=== PATIENT | female | born 1950 | race Caucasian/White ===

== ENCOUNTER → 2016-10-23 | Outpatient (CLI) | payer MEDICARE, OTHER ==
[~2016-10-23] MED LIST: 00186-0370-20 IH; ACIDOPHILUS; ACIDOPHILUS PRO1 CAP PO; ALEVE 220MG220 MG PO; ALLERGY SHOT IM; ANTIVERT 25MG25 MG PO; B COMPLEX & B121 TAB PO; BENADRYL E2.5 MG/1 M PO; CHILDREN'S BE12.5 MG PO; L-LYSINE500 MG PO; LEVOXYL0.025 MG PO; LEVOXYL0.05 MG PO; LEVSIN 0.10.125 MG/T; LEVSIN0.125 M1 PO; MEVACOR10 MG; MEVACOR10 MG PO; NEXIUM 40MG40 MG PO; NORCO 325 MG-51 TAB PO; OCEAN NASAL SPR45 ML NS; PERCOCET 325 MG1 TA2 PO; PROAIR HFA0.09 MG/AC IH; PROLIA60 MG/ML SC; ROBITUSSIN100 MG/5 M PO; SINGULAIR 110 MG/TAB PO; SYNTHROID 0.0.025 MG PO; TENORMIN 2525 MG/TAB PO; TYLENOL 325MG325 MG PO; TYLENOL ELIX32 MG/M2 PO; VALIUM 2MG T2 MG/TAB PO; VALIUM 5MG T5 MG/TAB; VALIUM 5MG T5 MG/TAB PO; VITAMIN B11000 MCG/M IM; VITAMIN C500 MG PO; VITAMIN D 400400 IU PO; VITAMIN D32000 IU PO; ZYRTEC SYRUP1 MG/ML PO; [UNRECOGNIZED DRUG - OTHER] PO
== END ==
LOC: COL.PUL 13:33
DX: L92.8 Other granulomatous disorders of the skin and subcutaneous tissue (principal)

== ENCOUNTER → 2016-11-21 | Outpatient (CLI) | payer MEDICARE, OTHER | LOC: COL.VAS 07:58 | DX: I35.1 Nonrheumatic aortic (valve) insufficiency (principal); R07.89 Other chest pain; R06.09 Other forms of dyspnea ==

== ENCOUNTER 2016-11-26 08:56 | Day surgery (SDC) | payer MEDICARE, OTHER ==
[~2016-11-26] VITALS: Ht 165.1 cm; Wt 50.5 kg
[~2016-11-26 08:56] MED LIST changes: -ALLERGY SHOT IM; -BENADRYL E2.5 MG/1 M PO; -LEVOXYL0.05 MG PO; -ROBITUSSIN100 MG/5 M PO; -TYLENOL ELIX32 MG/M2 PO
[2016-11-26 09:47] VITALS: BP 135/67; PULSE 84; TEMP 98.1
[2016-11-26] MEDS ORDERED: LEVOXYL0.05 MG PO (10:06)
[2016-11-26] MEDS ORDERED: TYLENOL ELIX32 MG/M2 PO (10:08)
[2016-11-26] MEDS ORDERED: BENADRYL E2.5 MG/1 M PO (10:08)
[2016-11-26] MEDS ORDERED: ROBITUSSIN100 MG/5 M PO (10:09)
[2016-11-26] MEDS ORDERED: ALLERGY SHOT IM (10:10)
[2016-11-26 11:04] VITALS: BP 134/74; PULSE 86; TEMP 97.9
[2016-11-26 11:19] VITALS: BP 133/69; PULSE 78
[2016-11-26 11:34] VITALS: BP 132/68; PULSE 85
[2016-11-26 11:49] VITALS: BP 124/68; PULSE 92
[2016-11-26 12:13] VITALS: BP 116/80; PULSE 82
== END 2016-11-26 12:05 | disposition home or self-care (01) ==
LOC: SDCO 08:56
DX: R05 Cough (principal); R06.02 Shortness of breath; R91.8 Other nonspecific abnormal finding of lung field; J44.9 Chronic obstructive pulmonary disease, unspecified
CPT/HCPCS: J2704; J7120

== ENCOUNTER → 2016-12-26 | Outpatient (CLI) | payer MEDICARE, OTHER ==
[~2016-12-26] MED LIST changes: +ALLERGY SHOT IM; +BENADRYL E2.5 MG/1 M PO; +LEVOXYL0.05 MG PO; +ROBITUSSIN100 MG/5 M PO; +TYLENOL ELIX32 MG/M2 PO
== END ==
LOC: COL.PUL 10:49
DX: R06.02 Shortness of breath (principal)
CPT/HCPCS: J7674

== ENCOUNTER 2017-03-10 09:32 | Emergency (ER) | payer MEDICARE, OTHER ==
[~2017-03-10] VITALS: Ht 165.1 cm; Wt 50.9 kg
[2017-03-10 09:36] VITALS: TEMP 99.2
[2017-03-10 10:07] VITALS: BP 83/47
[2017-03-10 10:53] LABS: BASO % 0.4 % (0.0-2.0); EOS # 0.1 (0.0-0.7); EOS % 0.7 % (0-4.0); GRAN # 4.7 (1.4-6.5); GRAN % 64.1 % (42.2-75.2); HEMATOCRIT 39.8 % (37.0-47.0); HEMOGLOBIN 12.8 g/dl (12.5-16.0); LYMPH % 27.1 % (20.0-51.0); MEAN CELL VOLUME 93 fl (80.0-100.0); MEAN CORPUSCULAR HEMOGLOBIN 30 pg (27.0-31.0); MEAN CORPUSCULAR HGB CONC 32 g/dl (33.0-37.0); MEAN PLATELET VOLUME 10.2 fl (7.4-10.4); MONO # 0.5 (0.1-0.6); MONO % 6.7 % (1.7-9.3); PLATELET COUNT 228 K/mm3 (130-400); RED BLOOD COUNT 4.26 M/mm3 (4.10-5.30); REDCELL DISTRIBUTION WIDTH-CV 14.9 % (11.5-14.5); WHITE BLOOD COUNT 7.3 K/mm3 (4.8-10.8)
[2017-03-10 11:13] LABS: ADJUSTED CALCIUM 8.8 mg/dL (8.4-10.2); ALANINE AMINOTRANSFERASE 18 U/L (9-52); ALBUMIN 4.2 gm/dL (3.5-5.0); ALKALINE PHOSPHATASE 51 U/L (50-136); ANION GAP 10 mmol/L (7-16); BILIRUBIN,TOTAL 0.8 mg/dL (0.0-1.0); BLOOD UREA NITROGEN 9 mg/dL (7-17); CARBON DIOXIDE 26 mmol/L (22-30); CHLORIDE 103 mmol/L (98-107); CREATININE, serum 0.71 mg/dL (0.52-1.25); GLUCOSE 80 mg/dL (74-106); POTASSIUM 3.6 mmol/L (3.4-5.0); SODIUM 139 mmol/L (137-145)
[2017-03-10 11:16] LABS: INFLUENZA B NEGATIVE
[2017-03-10 11:42] LABS: C-REACTIVE PROTEIN < 0.5 mg/dL (0.0-0.9)
[2017-03-10 12:07] VITALS: PULSE 79
== END 2017-03-10 12:08 | disposition home or self-care (01) ==
LOC: COL.ER 09:32
PROVIDERS: Family Medicine
DX: M54.2 Cervicalgia (principal); J06.9 Acute upper respiratory infection, unspecified; J45.909 Unspecified asthma, uncomplicated; R50.9 Fever, unspecified; R51 Headache
CPT/HCPCS: J7030

== ENCOUNTER → 2017-05-29 | Outpatient (CLI) | payer MEDICARE, OTHER | LOC: MC.RAD 05-27 11:00 | DX: Z12.31 Encounter for screening mammogram for malignant neoplasm of breast (principal) ==

== ENCOUNTER → 2018-07-11 | Outpatient (CLI) | payer MEDICARE, OTHER | LOC: MC.RAD 12:51 | DX: Z12.31 Encounter for screening mammogram for malignant neoplasm of breast (principal) ==

== ENCOUNTER 2019-03-19 14:14 | Outpatient (CLI) | payer MEDICARE, MEDICAID ==
[~2019-03-19 14:14] MED LIST changes: -PROLIA60 MG/ML SC; +PROLIA60 MG/ML SQ
[2019-03-19] MEDS ORDERED: ROBAXIN 75750 MG/TAB PO (14:36)
[2019-03-19 15:08] VITALS: BP 146/97; PULSE 83; TEMP 98.3
== END 2019-03-19 15:56 | disposition home or self-care (01) ==
LOC: EUO 14:14
DX: M81.0 Age-related osteoporosis without current pathological fracture (principal)
CPT/HCPCS: J3489

== ENCOUNTER → 2019-07-27 | Outpatient (CLI) | payer MEDICARE, MEDICAID ==
[~2019-07-27] MED LIST changes: +ROBAXIN 75750 MG/TAB PO
== END ==
LOC: COL.RAD 09:41
DX: R10.11 Right upper quadrant pain (principal)
CPT/HCPCS: A9537

== ENCOUNTER → 2019-08-12 | Outpatient (CLI) | payer MEDICARE, MEDICAID | LOC: COL.RAD 08:45 | DX: M16.11 Unilateral primary osteoarthritis, right hip (principal) | CPT/HCPCS: J3301; Q9967 ==

== ENCOUNTER → 2019-08-21 | Outpatient (CLI) | payer MEDICARE, MEDICAID | LOC: MC.RAD 11:39 | DX: Z12.31 Encounter for screening mammogram for malignant neoplasm of breast (principal) ==

== ENCOUNTER 2019-09-16 12:22 | Inpatient (IN) | payer MEDICARE, MEDICAID ==
[~2019-09-16] VITALS: Ht 165.1 cm; Wt 50.6 kg
[2019-11-17] VITALS (14 sets, daily range): BP systolic 83–142; BP diastolic 40–98; PULSE 70–104; TEMP 97.7–99.8
--- NOTE | 2019-11-17 05:15 | NUR ---
PATIENT ARRIVES PER W/C FOR SURGERY THIS AM. IS ALERT AND ORIENTED X4. IV STARTED TO LEFT FOREARM WITHOUT PROBLEM. FAMILY AT BEDSIDE.
[2019-11-17] MEDS ORDERED: VTAMINC250TA PO (05:40)
[2019-11-17] MEDS ORDERED: TOPROL XL 25MG25 MG PO (05:48)
[2019-11-17] MEDS ORDERED: DEXILANT60 MG PO (05:49)
[2019-11-17] MEDS ORDERED: PREDNISONE10 MG PO (05:50)
[2019-11-17] MEDS ORDERED: STIOLTO RESPIMAT4 GM IH (05:52)
[2019-11-17] MEDS ORDERED: ZYRTEC SYRUP1 MG/ML PO (05:52)
[2019-11-17] MEDS ORDERED: MYRBETR50MG PO (05:53)
[2019-11-17] MEDS ORDERED: LEXAPRO 5MG5 MG PO (05:54)
--- NOTE | 2019-11-17 06:30 | NUR ---
TAKEN VIA BED TO OR.
[2019-11-17] MEDS ORDERED: ATARAX 25MG25 MG/TAB PO (07:16)
[2019-11-17] MEDS ORDERED: ATARAX 10MG10 MG/TAB PO (07:17)
[2019-11-17] MEDS ORDERED: TESSALON P100 MG/CAP PO (07:18)
[2019-11-17] MEDS ORDERED: ALEVE 220MG220 MG PO (07:20)
[2019-11-17] MEDS ORDERED: FERROUS SU325 MG/TAB PO (07:22)
[2019-11-17] MEDS ORDERED: FOLIC ACID 40400 MCG PO (07:23)
[2019-11-17] MEDS ORDERED: POTASSIUM PO (07:25)
--- NOTE | 2019-11-17 09:25 | NUR ---
returned to room from PACU per bed, awake and alert, IV infusing and placed on pump at 125ml/hr, O2 on at 2L/NC and O2 sat 100%, has minimal sensation to feet and is beginning to wiggle toes, aquacel dressing to right hip CD&I, SCDS and RUBI hose on bilaterally, is c/o some pain to right hip, will monitor
--- NOTE | 2019-11-17 10:00 | NUR ---
states pain is continuing to increase, medicated with roxicodone 10mg, after took meds with sip of water c/o nausea and felt like she would have emesis, did not and nausea passed
--- NOTE | 2019-11-17 10:25 | NUR ---
is now crying and moving about in bed with shivering c/o increased pain, medicated with diluadid 0.25mg slow IV, family now in to visit
--- NOTE | 2019-11-17 10:45 | NUR ---
states pain is now getting better after having dilaudid, family at bedside assisting her with taking ice chips and she tolerates the ice chips without nausea
--- NOTE | 2019-11-17 11:45 | NUR ---
had mod amount clear liquid emesis that appeared to only be water, states was also incontinent when this occured
--- NOTE | 2019-11-17 12:00 | NUR ---
assisted up to bedside commode and voided, continues to have some nausea with clearliquid emesis, medicated with zofran 4mg po, moves with slow steady gait, medicated with scheduled toradol 15mg slow IV, c/o being a little dizzy when up and BP 91/48, P 76, c/o indigestion and refuses lunch at this time,
--- NOTE | 2019-11-17 12:53 | NUR ---
in bed and now appears to be sleeping, eyes closed, resp quiet and easy
--- NOTE | 2019-11-17 14:00 | NUR ---
BP 89/49 lying and P80, awake and talking with family and they and she both states it has been this low before
--- NOTE | 2019-11-17 14:05 | NUR ---
[place] [place] notified of BP, IV fluids increased to 150ml/hr
--- NOTE | 2019-11-17 14:42 | NUR ---
POOJA met with the patient and her two sons': Magdiel Fonseca (ph#[phone]) and Bertrand Fonseca (ph#[phone]) to discuss discharge plan. The patient lives alone in [place]. Magdiel states that he also lives in [place]. The patient reports independence with ADLs and has a cane and walker. The patient's PCP is Dr. Galdino Anderson and she receives her medications at [facility]. She reports no difficulties obtaining her meds. The patient's DPOA-HC is in EMR. Her DPOA-HC is her friend, Radha Kearney (ph#[phone]). The patient reports that due to living alone, she is interested in [facility] upon discharge. POOJA presented an explained the Patient Choice Form and provided her with Medicare.gov's list of SNFs. The patient chose 1) [facility] 2) [facility]. Patient Choice Form signed by the patient and she was provided a copy. POOJA contacted and faxed a referral to Renee at [facility]. POOJA consulted IPR Director, Johanny. POOJA awaiting their screens.
--- NOTE | 2019-11-17 15:27 | NUR ---
full assessment completed, see interventions for further info
--- NOTE | 2019-11-17 17:15 | NUR ---
sitting up in bed and eating small amount of supper
--- NOTE | 2019-11-17 18:00 | NUR ---
assisted up and ambulated into bathroom, moves with slow steady gait, after in bathroom c/o feeling nauseated and like she might "pass out", had her put her head down and she had a small amount undigested emesis, then felt better and dizziness passed, voided large amount, ambulated back to bed without further incident
--- NOTE | 2019-11-17 18:50 | NUR ---
bedside shift report given to MORIS Gong
[2019-11-18 03:55] VITALS: BP 106/55; PULSE 98; TEMP 98.4
--- NOTE | 2019-11-18 05:36 | NUR ---
Patient continues to be hypotensive. IV fluids continue. Patient states she has a headache and requests her Singulair, Benadryl, and Zyrtec for head congestion. This was given and effective as patient is sleeping. States she has not slept as of 0300. Scheduled Toradol given for pain relief. Voiding clear, yellow urine. Ambulates with 1 assist from staff with gait belt and walker. Aquacel clean, dry, and intact. Will continue to monitor.
--- NOTE | 2019-11-18 06:45 | NUR ---
Shift assessment; Patient states nausea, dizziness, and head congestion. Unable to eat breakfast due to lactose and gluten intolerance. Patient stated she chokes easily and has trouble swallowing pills. Patient complained of headache numeric pain scale 10/10, skin was cool and moist to the touch, with 99.0 temp.
[2019-11-18 07:00] VITALS: BP 122/58; PULSE 73; TEMP 99
[2019-11-18 07:11] LABS: HEMATOCRIT 27.3 % (37.0-47.0); HEMOGLOBIN 8.8 g/dl (12.5-16.0)
--- NOTE | 2019-11-18 07:50 | NUR ---
PRN Roxicodone PO 10 MG administered in anticipation of therapy.(OT)
[2019-11-18 09:30] VITALS: BP 129/61; PULSE 91
--- NOTE | 2019-11-18 11:56 | NUR ---
Initial visit; Patient thanked Crime Scene Photographer for stoppping and offering God's blessings and prayer. Crime Scene Photographer will follow up.
--- NOTE | 2019-11-18 13:40 | NUR ---
POOJA faxed updates to Renee at [facility]. POOJA awaiting their screen.
[2019-11-18 16:00] VITALS: BP 116/62; PULSE 88; TEMP 98.6
[2019-11-18 20:55] VITALS: BP 98/49; PULSE 87; TEMP 99.5
[2019-11-18 23:59] VITALS: BP 94/59; PULSE 94; TEMP 98.5
[2019-11-19 04:11] VITALS: BP 106/56; PULSE 99; TEMP 99.9
--- NOTE | 2019-11-19 05:39 | NUR ---
Patient rested well throughout the night. Roxycodone 10mg PRN given for pain relief. Noted to be effective. Patient states she feels much better than yesterday. Denies dizziness when she ambulates. Utilizes walker and gait belt. Ambulates with SBA. Dressing CDI. Eats applesauce with medication to deter from an upset stomach. Will continue to monitor.
[2019-11-19 06:03] LABS: HEMOGLOBIN 9.2 g/dl (12.5-16.0)
[2019-11-19 06:04] LABS: HEMATOCRIT 28.1 % (37.0-47.0)
[2019-11-19 08:00] VITALS: BP 105/57; PULSE 100; TEMP 99.4
--- NOTE | 2019-11-19 08:00 | NUR ---
PATIENT IS A&O. VSS. DENIES PAIN AT REST. PATIENT DOES NOT WANT TO GET UP INTO BEDSIDE CHAIR FOR BREAKFAST. RTH DRESSING IS CD&I WITH AQUACEL. TEDS TO BLE. POSITIVE PEDAL PULSES TO BLE. STUDENT NURSE WORKING WITH PATIENT TODAY, SEE CHARTING. HEAD TO TOE ASSESSMENT COMPLETE. BREAKFAST TRAY AT BEDSIDE. STUDENT GIVING AM MEDS. NO OTHER NEEDS. CALL LIGHT IN REACH.
--- NOTE | 2019-11-19 12:35 | NUR ---
PATIENT EATING LUNCH AND C/O ESOPHAGEAL SPAMS/REFLUX. GAVE PRN TUMS.
[2019-11-19 12:37] VITALS: BP 98/61; PULSE 98; TEMP 99
--- NOTE | 2019-11-19 13:41 | NUR ---
Resting in bed, worked with PT
--- NOTE | 2019-11-19 14:49 | NUR ---
Renee, at [facility], reports that they are able to accept the patient tomorrow and that the accepting physician is Dr. Oneida London. The [id number] number is [phone]. The RN report number is [phone]. POOJA met with the patient to inform. The patient is wanting to pursue with [facility] and she states that her son can provide her with transportation there. The patient is to tentatively discharge tomorrow, 11/20. POOJA presented and explained the IM form to the patient. The patient verbalized understanding, signed, and she was provided a copy. SW to continue to follow.
--- NOTE | 2019-11-19 15:15 | NUR ---
REPORTED OFF TO MORIS OLVERA.
[2019-11-19 17:25] VITALS: BP 124/69; PULSE 97; TEMP 99.8
--- NOTE | 2019-11-19 19:01 | NUR ---
Patient has done well this afternoon. Denies pain at this time. Reported off to cook night.
[2019-11-19 19:54] VITALS: BP 111/63; PULSE 83; TEMP 98.9
[2019-11-20 04:06] VITALS: BP 114/63; PULSE 93; TEMP 98.7
--- NOTE | 2019-11-20 04:46 | NUR ---
Patient has rested well throughout the night. Requests PRN Benadryl for congestion and this was given with some relief. This morning patient stated she had a little bit of nausea and requested PRN Zofran. This was administered. Patient now resting with eyes closed. SBA for transfers to the bathroom and ambulation with walker. Steady gait noted. PRN pain medication given and relief noted. Aquacel to right hip CDI. Denies any further needs. Will continue to monitor.
[2019-11-20 07:37] VITALS: BP 112/68; PULSE 101; TEMP 98.7
[2019-11-20 07:49] LABS: HEMATOCRIT 28.3 % (37.0-47.0); HEMOGLOBIN 9.1 g/dl (12.5-16.0)
[2019-11-20 09:00] VITALS: BP 112/68; PULSE 101; TEMP 98.7
--- NOTE | 2019-11-20 11:20 | NUR ---
The [id number] was done. The patient is to discharge today, 11/20, to [facility]. Transportation to be by private vehicle, via the patient's son. No additional needs at this time.
--- NOTE | 2019-11-20 11:25 | NUR ---
PATIENT DISCHARGING TO [facility]. STUDENT NURSE LORI'Rell IV, ASSISTED PATIENT TO GET DRESSED AND PACK BELONGINGS. GAVE INFO PACKET TO FAMILY. CALLED REPORT TO NURSE AT FACILITY. PATIENT GIVEN BACK HER HOME MEDICATIONS SHE BROUGHT IN, INCLUDING BOTH OF HER INHALERS. PATIENT DISCHARGED.
== END 2019-11-20 11:25 | DRG 470 ==
LOC: JCC 11-17 05:10
PROVIDERS: ADMIT Orthopaedic Surgery Sports Medicine
PROC: 0SR902Z Replacement of Right Hip Joint with Metal on Polyethylene Synthetic Substitute, Open Approach (ICD-10-PCS; principal; 2019-11-17 07:30)
DX: M16.11 Unilateral primary osteoarthritis, right hip (principal); Z88.0 Allergy status to penicillin; Z88.1 Allergy status to other antibiotic agents; Z88.2 Allergy status to sulfonamides; Z88.8 Allergy status to other drugs, medicaments and biological substances; Z88.5 Allergy status to narcotic agent; I95.9 Hypotension, unspecified
CPT/HCPCS: A9284; C1713; C1776; J0690; J1170; J1885; J2250; J2704; J3010; J7120; J7512

== ENCOUNTER → 2019-11-10 | Outpatient (CLI) | payer MEDICARE, MEDICAID | LOC: COL.LAB 11:17 | DX: Z01.83 Encounter for blood typing (principal); M16.11 Unilateral primary osteoarthritis, right hip ==

== ENCOUNTER 2020-03-21 14:06 | Outpatient (CLI) | payer MEDICARE, MEDICAID ==
[~2020-03-21] VITALS: Ht 165.1 cm; Wt 54.8 kg
[~2020-03-21 14:06] MED LIST changes: +ATARAX 10MG10 MG/TAB PO; +ATARAX 25MG25 MG/TAB PO; +DEXILANT60 MG PO; +FERROUS SU325 MG/TAB PO; +FOLIC ACID 40400 MCG PO; +LEXAPRO 5MG5 MG PO; +MYRBETR50MG PO; +POTASSIUM PO; +PREDNISONE10 MG PO; +STIOLTO RESPIMAT4 GM IH; +TESSALON P100 MG/CAP PO; +TOPROL XL 25MG25 MG PO; +VTAMINC250TA PO
[2020-03-21] MEDS ORDERED: ASPIRIN 32325 MG/TAB PO (14:45)
[2020-03-21] MEDS ORDERED: MIRALAX PA17 GM/Dose PO (14:46)
[2020-03-21] MEDS ORDERED: COLACE 100100 MG/CAP PO (14:47)
[2020-03-21] MEDS ORDERED: TESSALON P100 MG/CAP PO (14:48)
[2020-03-21] MEDS ORDERED: ROBITUSSIN DM 105 ML PO (14:49)
[2020-03-21] MEDS ORDERED: BENADRYL25 M2 PO (14:50)
[2020-03-21] MEDS ORDERED: ZOFRAN 4MG T4 MG/TAB PO (14:51)
[2020-03-21] MEDS ORDERED: ANTIVERT 25MG25 MG PO (14:51)
[2020-03-21] MEDS ORDERED: MEVACOR10 MG PO (14:52)
[2020-03-21] MEDS ORDERED: NEXIUM 40MG40 MG PO (14:53)
[2020-03-21] MEDS ORDERED: REGLAN 5MG T5 MG/TAB PO (14:54)
[2020-03-21] MEDS ORDERED: ROBAXIN 75750 MG/TAB PO (14:55)
[2020-03-21] MEDS ORDERED: VOLTAREN GEL 1%1 TU TP (14:56)
[2020-03-21] MEDS ORDERED: PROBIOTIC 2 BI1 EACH PO (14:57)
[2020-03-21] MEDS ORDERED: VITAMIN D3400 I1 PO (14:58)
[2020-03-21] MEDS ORDERED: VTAMINC250TA PO (15:00)
[2020-03-21] MEDS ORDERED: K-TAB20 PO (15:02)
[2020-03-21] MEDS ORDERED: FOLIC ACID0.4 MG PO (15:02)
[2020-03-21] MEDS ORDERED: VITAMIN B11000 MCG/M IM (15:03)
[2020-03-21] MEDS ORDERED: RECLAST5 MG/100 M IV (15:04)
[2020-03-21 15:50] VITALS: BP 126/84; PULSE 66; TEMP 98.3
== END 2020-03-21 15:10 | disposition home or self-care (01) ==
LOC: EUO 14:06
DX: M81.0 Age-related osteoporosis without current pathological fracture (principal); Z79.899 Other long term (current) drug therapy
CPT/HCPCS: J3489

== ENCOUNTER → 2020-03-23 | Outpatient (CLI) | payer MEDICARE, MEDICAID ==
[~2020-03-23] MED LIST changes: +ASPIRIN 32325 MG/TAB PO; +BENADRYL25 M2 PO; +COLACE 100100 MG/CAP PO; +FOLIC ACID0.4 MG PO; +K-TAB20 PO; +MIRALAX PA17 GM/Dose PO; +PROBIOTIC 2 BI1 EACH PO; +RECLAST5 MG/100 M IV; +REGLAN 5MG T5 MG/TAB PO; +ROBITUSSIN DM 105 ML PO; +VITAMIN D3400 I1 PO; +VOLTAREN GEL 1%1 TU TP; +ZOFRAN 4MG T4 MG/TAB PO
== END ==
LOC: COL.VAS 14:28
DX: L97.923 Non-pressure chronic ulcer of unspecified part of left lower leg with necrosis of muscle (principal)

== ENCOUNTER → 2020-09-19 | Outpatient (CLI) | payer MEDICARE, MEDICAID | LOC: MC.RAD 08-22 10:45 | DX: Z12.31 Encounter for screening mammogram for malignant neoplasm of breast (principal) ==

== ENCOUNTER 2021-03-31 14:49 | Outpatient (CLI) | payer MEDICARE, MEDICAID ==
[~2021-03-31] VITALS: Ht 165.1 cm; Wt 62.7 kg
[2021-03-31 15:05] VITALS: BP 142/72; PULSE 62; TEMP 97.9
== END 2021-03-31 16:01 | disposition home or self-care (01) ==
LOC: EUO 14:49
DX: M81.0 Age-related osteoporosis without current pathological fracture (principal)
CPT/HCPCS: J3489

== ENCOUNTER 2022-04-12 14:51 | Outpatient (CLI) | payer MEDICARE, MEDICAID ==
[~2022-04-12] VITALS: Ht 165.1 cm; Wt 65.5 kg
[~2022-04-12 14:51] MED LIST changes: +LEXAPRO 10MG10 MG PO; -LEXAPRO 5MG5 MG PO
[2022-04-12] MEDS ORDERED: NATURAL POTASS595 MG PO (15:14)
[2022-04-12 15:55] VITALS: BP 128/76; PULSE 92; TEMP 98.7
== END 2022-04-12 20:35 | disposition home or self-care (01) ==
LOC: EUO 14:51
DX: M81.0 Age-related osteoporosis without current pathological fracture (principal)
CPT/HCPCS: J3489

== ENCOUNTER → 2022-06-15 | Outpatient (CLI) | payer MEDICARE, MEDICAID ==
[~2022-06-15] MED LIST changes: +NATURAL POTASS595 MG PO
== END ==
LOC: COL.RAD 09:55
DX: M25.552 Pain in left hip (principal)
CPT/HCPCS: J3301; Q9967

== ENCOUNTER → 2023-01-03 | Outpatient (CLI) | payer MEDICARE, MEDICAID | LOC: MC.RAD 08-22 14:00 | DX: Z12.31 Encounter for screening mammogram for malignant neoplasm of breast (principal) ==

== ENCOUNTER 2023-06-18 10:42 | Outpatient (CLI) | payer MEDICARE, MEDICAID ==
[2023-06-18 11:06] VITALS: BP 133/84; PULSE 80; TEMP 98.7
--- NOTE | 2023-06-18 11:51 | NUR ---
PT TOLERATED RECLAST INFUSION WELL. VS REMAINED WITHIN NORMAL LIMITS. PT AMBULATED INDEPENDENTLY TO [facility] FOLLOWING PROCEDURE AND WAS FREE FROM CONCERNS AND COMPLAINTS AT TIME OF DISCHARGE. IV DISCONTINUED UPON DISCHARGE.
== END 2023-06-18 12:50 | disposition home or self-care (01) ==
LOC: EUO 10:42
DX: M81.0 Age-related osteoporosis without current pathological fracture (principal)
CPT/HCPCS: J3489

== ENCOUNTER → 2024-05-14 | Outpatient (CLI) | payer MEDICARE, MEDICAID ==
[~2024-05-14] VITALS: Ht 165.1 cm; Wt 73.5 kg
[~2024-05-14] MED LIST changes: +NEURONTIN300 MG/CAP PO; +PREDNISONE 5MG5 MG PO; +REGLAN 10MG10 MG/TAB PO; +TRELEGY ELLIPT1 EACH IH; +Triamcinolone 40 MG/ML 1 ML VIAL IJ SCH
[2024-05-14 12:38] VITALS: BP 138/82; PULSE 79; TEMP 98.2
[2024-05-14 13:30] VITALS: BP 150/86; PULSE 78
== END ==
LOC: COL.RAD 11:37
DX: M51.26 Other intervertebral disc displacement, lumbar region (principal)
CPT/HCPCS: J0665; J3301

== ENCOUNTER → 2024-05-28 | Outpatient (CLI) | payer MEDICARE, MEDICAID ==
[~2024-05-28] VITALS: Ht 165.1 cm; Wt 73.7 kg
[~2024-05-28] MED LIST changes: +VENTOLIN0.09 MG IH
[2024-05-28 09:30] VITALS: BP 162/81; PULSE 86; TEMP 98.8
[2024-05-28 10:15] VITALS: BP 151/93; PULSE 85
== END ==
LOC: COL.RAD 09:00
DX: M79.7 Fibromyalgia (principal)
CPT/HCPCS: J0665; J3301